=== PATIENT | female | born 1990 | race African-American/Black ===

== ENCOUNTER 2017-03-09 01:18 | Emergency (ER) | payer MEDICAID ==
[~2017-03-09] VITALS: Ht 154.9 cm; Wt 57.6 kg
[2017-03-09 01:35] VITALS: BP 101/47
[2017-03-09] MEDS ORDERED: DOXYCYCLINE MO100 MG ORAL (02:01)
[2017-03-09] MEDS ORDERED: Lidocaine 1% MPF 10mg/ml 5ml ONE (02:26)
[2017-03-09 02:30] VITALS: BP 107/55
[2017-03-09] MEDS ORDERED: Lidocaine 1% MPF 10mg/ml 5ml INJ ONE (02:30)
--- NOTE | 2017-03-14 08:42 | Emergency Room Report ---
History of Present Illness General Chief Complaint: General Complaint Source: Patient Present Illness [facility] The patient is a 26-year-old female who presented after having increased vaginal discharge. Patient stated that she had recently been exposed to sexually transmitted infection. Patient stated that she had recently had a positive test from a sexual contact. She denies any fever. She denies any abdominal pain. Patient is requesting treatment for STD. Allergies: Coded Allergies: No Known Allergies (Unverified , 03/09/17) Patient History Past Medical History: see triage record Last Menstrual Period: March 05 Now: No Reviewed Nursing Documentation: PMH: Agreed, PSxH: Agreed Nursing Documentation-PMH Past Medical History: No Stated History Review of Systems All Other Systems: negative except mentioned in HPI Physical Exam Vital Signs Date Time Temp Pulse Resp B/P Pulse Ox O2 Delivery O2 Flow Rate FiO2 03/09/17 01:26 98.1 68 16 101/47 100 Room Air General Appearance: well appearing, no apparent distress, alert, GCS 15 Head: normocephalic, atraumatic ENT: hearing grossly normal, normal pharynx, normal voice Neck: full range of motion, supple Respiratory: no respiratory distress, speaking full sentences Cardiovascular #1: normal inspection Gastrointestinal: normal inspection Musculoskeletal: normal inspection, digits/nails normal, no calf tenderness Neurologic: normal inspection, alert, oriented x3, principal secretary III-XII nml as tested, normal gait Psychiatric: normal inspection, mood/affect normal Skin: no rash Medical Decision Making Diagnostic Impression: Primary Impression: STI (sexually transmitted infection) ER Course Patient presented for possible STD exposure. Differential diagnosis included was not limited to urinary tract infection, pelvic inflammatory disease, urethritis, herpes among others. Patient's benign exam and does not appear to require any further imaging or laboratory testing at this time. The patient was given empiric treatment with antibiotics for presumed STD. Patient is advised to have outpatient STD testing. The patient is advised to follow up with primary care doctor in 1-2 days. Patient is advised to return if any worsening condition or if any changes in status that are concerning. Last Vital Signs Date Time Temp Pulse Resp B/P Pulse Ox O2 Delivery O2 Flow Rate FiO2 03/09/17 02:30 98.4 76 17 107/55 99 Room Air Status: improved Disposition: HOME, SELF-CARE Condition: Stable Scripts Doxycycline Monohydrate* (DOXYCYCLINE MONOHYDRATE*) 100 Mg Capsule 100 MG ORAL TWICE A DAY, #14 CAP 0 Refills Prov: Jesus Andrew 03/09/17 Referrals: NON PHYSICIAN (PCP) Patient Instructions: Sexually Transmitted Disease, [id number] Jesus Andrew Mar 14, 2017 08:42
== END 2017-03-09 02:30 | disposition home or self-care (01) ==
LOC: EMR 01:56
DX: A64 Unspecified sexually transmitted disease (principal)
CPT/HCPCS: 81025; 96372; 99283; J0696

== ENCOUNTER 2017-03-24 00:04 | Emergency (ER) | payer MEDICAID ==
[~2017-03-24] VITALS: Ht 154.9 cm; Wt 57.6 kg
[~2017-03-24 00:04] MED LIST: DOXYCYCLINE MO100 MG ORAL
[2017-03-24] MEDS ORDERED: NKM (00:11)
[2017-03-24] MEDS ORDERED: HYDROCODON-ACE1 EA15 ORAL (01:14)
[2017-03-24] MEDS ORDERED: BACTRIM DS TAB1 EAC1 ORAL (01:14)
[2017-03-24] MEDS ORDERED: Bactrim DS (160mg/800mg) tab ORAL ONE (01:15)
--- NOTE | 2017-03-24 01:15 | Emergency Room Report ---
History of Present Illness General Chief Complaint: Skin Rash/Abscess Source: Patient Present Illness HPI Is a 26-year-old female with no past history. She does get frequent abscesses. She presents with chief complaint of rash to her armpit. Onset for last couple days. No drainage. No fever or chills. No nausea vomiting. No other complaint pain is 5/10. Worse with palpation. Allergies: Coded Allergies: No Known Allergies (Unverified , 03/09/17) Patient History Past Medical History: see triage record, old chart reviewed Past Surgical History: other Pertinent Family History: none Social History: Denies: smoking Last Menstrual Period: March Now: No Immunizations: other Reviewed Nursing Documentation: PMH: Agreed, PSxH: Agreed Nursing Documentation-PMH Past Medical History: No Stated History Review of Systems Eye: Denies: blurred vision, eye pain ENT: Denies: ear pain, nose congestion, throat swelling Respiratory: Denies: cough, shortness of breath Cardiovascular: Denies: chest pain, palpitations Gastrointestinal: Denies: abdominal pain, diarrhea, nausea, vomiting Musculoskeletal: Denies: back pain, joint pain Skin: Denies: rash Neurological: Denies: headache, numbness Endocrine: Denies: increased thirst, increased urine Hematologic/Lymphatic: Denies: easy bruising All Other Systems: negative except mentioned in HPI Physical Exam Vital Signs Date Time Temp Pulse Resp B/P Pulse Ox O2 Delivery O2 Flow Rate FiO2 03/24/17 00:06 98.4 66 16 115/70 100 Room Air vitals normal Sp02 EP Interpretation: reviewed, normal General Appearance: well appearing, no apparent distress, alert Head: normocephalic, atraumatic Eyes: bilateral eye EOMI, bilateral eye PERRL ENT: hearing grossly normal, normal pharynx Neck: full range of motion, supple, no meningismus Respiratory: chest non-tender, lungs clear, normal breath sounds Cardiovascular #1: regular rate, rhythm, no murmur Gastrointestinal: normal bowel sounds, non tender, no mass, no organomegaly, no bruit, non-distended Musculoskeletal: back normal, gait/station normal, normal range of motion, other - Left axilla: several small nodule/fluctuant area. No redness. Neurologic: alert, oriented x3 Psychiatric: mood/affect normal Skin: warm/dry Procedures Incision and Drainage Incision and Drainage : Consent: Verbal Site: Left axilla Blade Size: 11 I & D Procedure: betadine prep Wound Location: upper extremity Anesthesia: 1% Lidocaine Volume Anesthetic (ccs): 2 Patient Tolerated: Well Complications: None Progress area clean with Betadine and chlorhexidine. Local anesthetic 1% lidocaine without epinephrine. I made a small incision over each nodule and there was small amount of pus expressed. Patient tolerated seizure without a problem. Medical Decision Making Diagnostic Impression: Primary Impression: Abscess of axilla, left ER Course Patient With superficial abscess axilla. Most likely MRSA. We'll discharge home. Last Vital Signs Date Time Temp Pulse Resp B/P Pulse Ox O2 Delivery O2 Flow Rate FiO2 03/24/17 00:06 98.4 66 16 115/70 100 Room Air Status: improved Disposition: HOME, SELF-CARE Condition: Stable Scripts Hydrocodone/Acetaminophen 5-325* (HYDROCODONE/ACETAMINOPHEN 5-325*) 1 Each Tablet 1 TAB ORAL Q6H Y for For Pain, #15 TAB 0 Refills Prov: YONG DURAN M.D. 03/24/17 Trimethoprim/Sulfamethoxazole 160/800* (BACTRIM DS TABLET*) 1 Each Tablet 1 TAB ORAL Q12H, #14 TAB 0 Refills Prov: YONG DURAN M.D. 03/24/17 Referrals: [facility],REFERRING (PCP) Patient Instructions: Abscess Additional Instructions: Followup with your DrBelkys in 2-3 days. Return if worse. YONG DURAN M.D. Mar 24, 2017 01:15
[2017-03-24 01:18] VITALS: BP_SYST 115; BP_SYST 127; BP_DIAS 70; BP_DIAS 74
== END 2017-03-24 01:19 | disposition home or self-care (01) ==
LOC: EMR 01:04
DX: L02.412 Cutaneous abscess of left axilla (principal)
CPT/HCPCS: 10060

== ENCOUNTER 2018-02-12 17:24 | Emergency (ER) | payer MEDICAID ==
[~2018-02-12] VITALS: Ht 154.9 cm; Wt 57.6 kg
[~2018-02-12 17:24] MED LIST changes: +BACTRIM DS TAB1 EAC1 ORAL; +HYDROCODON-ACE1 EA15 ORAL; +NKM
[2018-02-12 18:19] VITALS: BP 106/67
[2018-02-12] MEDS ORDERED: Lidocaine 1% MPF 10mg/ml 5ml INJ ONE (18:30)
[2018-02-12] MEDS ORDERED: Azithromycin 250mg tab ORAL ONE (18:30)
--- NOTE | 2018-02-12 18:54 | Emergency Room Report ---
History of Present Illness General Chief Complaint: General Complaint Source: Patient Present Illness HPI 27-year-old female patient persists ER requesting STI check. Patient reports she is asymptomatic. Denies dysuria, hematuria, vaginal discharge. Reports that her boyfriend is in the ER currently as well being checked for STI due to him having symptoms. Patient requesting to be evaluated as well. Denies fever , chest pain, shortness breath, abdominal pain, flank pain, vomiting. reports LMP normal, denies . denies other sexual partners. denies vaginal rash. Allergies: Coded Allergies: No Known Allergies (Unverified , 03/09/17) Patient History Past Medical History: see triage record Last Menstrual Period: 01/29/18 Reviewed Nursing Documentation: PMH: Agreed; PSxH: Agreed Nursing Documentation-PMH Past Medical History: No Stated History Review of Systems All Other Systems: negative except mentioned in HPI Physical Exam Vital Signs Date Time Temp Pulse Resp B/P (MAP) Pulse Ox O2 Delivery O2 Flow Rate FiO2 02/12/18 17:29 97.8 70 18 106/67 98 Room Air 97.9 Sp02 EP Interpretation: reviewed, normal General Appearance: well appearing, no apparent distress, alert, GCS 15, non- toxic Head: normocephalic, atraumatic Neck: full range of motion Respiratory: lungs clear, normal breath sounds, no rhonchi, no respiratory distress, no accessory muscle use, no wheezing, speaking full sentences Cardiovascular #1: regular rate, rhythm, no edema Gastrointestinal: non tender, soft, no mass, non-distended, no guarding, no rebound Genitourinary: no CVA tenderness Musculoskeletal: back normal, digits/nails normal, gait/station normal, normal range of motion, non-tender Neurologic: alert, oriented x3, responsive, motor strength/tone normal, sensory intact Psychiatric: mood/affect normal Medical Decision Making PA Attestation Dr. Hercules is my supervising Physician whom patient management has been discussed with. Diagnostic Impression: Primary Impression: Encounter for assessment of sexually transmitted disease exposure ER Course Pt. presents to the ED c/o STI. Ddx considered but are not limited to gonorrhea, chlamydia, cystitis, pyelonephritis. Vital signs: are WNL, pt. is afebrile ER COURSE: Ordered Azithromycin and Rocephin to cover for gonorrhea and chlamydia due to possible exposure and patient boyfriend symptomatic.. Informed patient she needs to follow with STI clinic for further testing and treatment. Needs to be evaluated for other diseases including HIV and syphilis to name a few. Patient reports she has appointment with the physician tomorrow, will be tested at that time. UA shows no nitrites, 0-2 WBCs, moderate epithelial cells, patient asymptomatic , low suspicion for UTI. Does not require antibiotic treatment at this time. urine negative. Informed patient of results. avoid sexual activity for 2 weeks. Wear condoms during sex. Drink plenty of fluids. Instructed all sexual contacts to be tested and treated as needed. DISCHARGE: Advised to use safe sex practices including but not limited to use of condoms. Instructed patient to follow up with STI clinic and/or PCP for future STI treatment and prevention. Instructed patient to inform partner of need for treatment to prevent future infection. Patient is resting comfortably, in no acute distress, nontoxic appearing, talking without difficulty. Patient to take medications as instructed Will provide with patient care instructions and any necessary prescriptions. Care plan and follow-up instructions provided. Patient instructed to follow-up with primary care provider in 3 - 5 days. Patient questions asked and answered. Patient reports understanding and agreement to treatment plan. ER precautions given. Patient instructed to return to ER immediately for any new or worsening of symptoms including but not limited to increasing SOB, persistent fever. - Please note that this Emergency Department Report was dictated using [employer] learning technology software, occasionally this can lead to erroneous entry secondary to interpretation by the dictation equipment. Labs Test 02/12/18 18:54 Urine Color Yellow Urine Appearance Slightly cloudy Urine pH 6.5 (4.5-8.0) Urine Specific [place] 1.015 (1.005-1.035) Urine Protein Negative (NEGATIVE) Urine Glucose (UA) Negative (NEGATIVE) Urine Ketones Negative (NEGATIVE) Urine Occult Blood Negative (NEGATIVE) Urine Nitrite Negative (NEGATIVE) Urine Bilirubin Negative (NEGATIVE) Urine Urobilinogen 1 MG/DL (0.0-1.0) Urine Leukocyte Esterase 1+ (NEGATIVE) Urine RBC 0-2 /HPF (0 - 2) Urine WBC 0-2 /HPF (0 - 2) Urine Squamous Epithelial Cells Moderate /LPF (NONE/OCC) Urine Bacteria Moderate /HPF (NONE) Urine HCG, Qualitative Negative (NEGATIVE) Last Vital Signs Date Time Temp Pulse Resp B/P (MAP) Pulse Ox O2 Delivery O2 Flow Rate FiO2 02/12/18 17:29 97.8 70 18 106/67 98 Room Air 97.9 Disposition: HOME, SELF-CARE Condition: Stable Referrals: NON PHYSICIAN (PCP) Patient Instructions: Sexually Transmitted Disease, [id number] Additional Instructions: Followup with primary care provider further treatment and referral. Follow-up with STI clinic for further testing and treatment. Wear condoms during sex. Drink plenty of fluids. Avoid sexual activity for the next 2 weeks. Inform all partner should be tested and treated. Patient questions asked and answered. ER precautions given, patient instructed to return to ER immediately for any new or worsening of symptoms. Sahil Pinedo Feb 12, 2018 18:54
[2018-02-12 19:38] LABS: APPEARANCE,URINE SLIGHTLY CLOUDY; BILIRUBIN, URINE NEGATIVE (NEGATIVE); GLUCOSE, URINE (UA) NEGATIVE (NEGATIVE); KETONES,URINE NEGATIVE (NEGATIVE); LEUKOCYTE ESTERASE ,URINE 1+ (NEGATIVE); NITRITE,URINE NEGATIVE (NEGATIVE); PH,URINE 6.5 (4.5-8.0); PROTEIN,URINE NEGATIVE (NEGATIVE); UROBILINOGEN,URINE 1 MG/DL (0.0-1.0)
[2018-02-12 19:39] LABS: COLOR,URINE YELLOW
[2018-02-12 19:57] VITALS: BP 106/67
== END 2018-02-12 19:59 | disposition home or self-care (01) ==
LOC: EMR 18:45
DX: Z20.2 Contact with and (suspected) exposure to infections with a predominantly sexual mode of transmission (principal)
CPT/HCPCS: 81003; 81025; 87086; 96372; 96374; 99284; J0696; Q0144

== ENCOUNTER 2018-04-27 20:30 | Emergency (ER) | payer MEDICAID ==
[~2018-04-27] VITALS: Ht 154.9 cm; Wt 57.6 kg
[2018-04-27 21:01] VITALS: BP 117/67
--- NOTE | 2018-04-28 01:30 | Emergency Room Report ---
History of Present Illness General Chief Complaint: General Complaint Source: Patient Present Illness HPI Patient presents with request of checking her urine Denies any fevers Denies any abdominal pain Patient reports that she is late on her menstrual cycle Denies any dysuria frequency Denies any back or flank pain Denies any vaginal bleeding or spotting Allergies: Coded Allergies: No Known Allergies (Unverified , 03/09/17) Patient History Past Medical History: see triage record Pertinent Family History: none Last Menstrual Period: last month Reviewed Nursing Documentation: PMH: Agreed; PSxH: Agreed Nursing Documentation-PMH Past Medical History: No Stated History Review of Systems All Other Systems: negative except mentioned in HPI Physical Exam Vital Signs Date Time Temp Pulse Resp B/P (MAP) Pulse Ox O2 Delivery O2 Flow Rate FiO2 04/27/18 20:58 99.7 78 16 117/67 99 Room Air 99.7 Sp02 EP Interpretation: reviewed, normal General Appearance: well appearing Head: normocephalic, atraumatic Eyes: bilateral eye PERRL, bilateral eye EOMI ENT: normal pharynx Musculoskeletal: normal inspection Neurologic: alert, oriented x3 Medical Decision Making Diagnostic Impression: Primary Impression: Abnormal menstrual cycle ER Course Patient's test was negative at this time patient left the department prior to having a repeat evaluation Stable for close follow-up Labs Test 04/27/18 21:16 Urine HCG, Qualitative Negative (NEGATIVE) Last Vital Signs Date Time Temp Pulse Resp B/P (MAP) Pulse Ox O2 Delivery O2 Flow Rate FiO2 04/27/18 21:44 99.7 78 16 117/67 99 Room Air 99.7 Status: improved Disposition: HOME, SELF-CARE Condition: Improved Referrals: [facility],REFERR[facility] (PCP) Additional Instructions: Patient is provided with the discharge instructions notified to follow up with primary doctor in the next 2-3 days otherwise return to the er with any worsening symptoms. Please note that this report is being documented using [employer] technology. This can lead to erroneous entry secondary to incorrect interpretation by the dictating instrument. Mahogany Hercules DO Apr 28, 2018 01:30
== END 2018-04-27 21:50 | disposition home or self-care (01) ==
LOC: EMR 21:48
DX: N92.6 Irregular menstruation, unspecified (principal)
CPT/HCPCS: 81025; 99283

== ENCOUNTER 2019-02-04 19:50 | Emergency (ER) | payer MEDICAID ==
[~2019-02-04] VITALS: Ht 154.9 cm; Wt 57.6 kg
[2019-02-04 20:22] VITALS: BP 109/55
[2019-02-04] MEDS ORDERED: oxyCODONE HCL/Acetaminophen 5/325mg ORAL ONE (20:45)
--- NOTE | 2019-02-04 21:14 | Emergency Room Report ---
History of Present Illness General Chief Complaint: Skin Rash/Abscess Source: Patient Present Illness HPI 28-year-old healthy female comes here with complaints of few month history of anal swelling and mild pain, finally came and it started hurting slightly more over the past few days, she feels a little lump there and is not going away so she came in for evaluation, denies any bleeding, fevers, any other complaints. She reports she has had an abscess in her underarm in the remote past that had to be drained so she thought this would be similar. Allergies: Coded Allergies: No Known Allergies (Unverified , 03/09/17) Patient History Past Medical History: see triage record Last Menstrual Period: now Now: No Reviewed Nursing Documentation: PMH: Agreed; PSxH: Agreed Nursing Documentation-PMH Past Medical History: No Stated History Review of Systems All Other Systems: negative except mentioned in HPI Physical Exam Vital Signs Date Time Temp Pulse Resp B/P (MAP) Pulse Ox O2 Delivery O2 Flow Rate FiO2 02/04/19 20:17 98.1 87 18 107/55 (72) 98 Room Air Sp02 EP Interpretation: reviewed, normal General Appearance: no apparent distress, alert, non-toxic Head: normocephalic Eyes: bilateral eye normal inspection, bilateral eye PERRL, bilateral eye EOMI ENT: normal ENT inspection, hearing grossly normal, normal pharynx, no angioedema, normal voice, moist mucus membranes Neck: normal inspection, full range of motion, supple, supple/symm/no masses Respiratory: chest non-tender, lungs clear, normal breath sounds, chest symmetrical, palpation of chest normal Cardiovascular #1: normal peripheral pulses, regular rate, rhythm Cardiovascular #2: 2+ radial (R), 2+ radial (L) Gastrointestinal: normal inspection, non tender, soft, no mass, no guarding, no rebound Rectal: normal rectal tone, mass - 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, 2cm polyp palpated at 2o'clock position, minimally tender, nonerythematous, nonfluctuant Genitourinary: normal inspection, no CVA tenderness Musculoskeletal: back normal, gait/station normal, normal range of motion, non- tender, no calf tenderness Neurologic: alert, responsive, hay stacker III-XII nml as tested, motor strength/tone normal, sensory intact, speech normal Psychiatric: judgement/insight normal, memory normal, mood/affect normal Skin: normal color, no rash, warm/dry, normal turgor Lymphatic: no adenopathy Procedures Incision and Drainage Incision and Drainage : Consent: Verbal Site: R anal polypoid lesion Blade Size: 11 I & D Procedure: betadine prep, sterile drapes applied Wound's Depth, Shape: superficial Anesthesia: 1% Lidocaine Volume Anesthetic (ccs): 1 Patient Tolerated: Well Complications: None Progress Very shallow stab incision placed into polyp, no blood nor clot nor purulent material expressed, patient tolerated well Medical Decision Making Diagnostic Impression: Primary Impression: Anal polyp ER Course Examination, attempted incision, suspect uncomplicated anal polyp, recommend patient to be followed up by a rectal surgeon. Last Vital Signs Date Time Temp Pulse Resp B/P (MAP) Pulse Ox O2 Delivery O2 Flow Rate FiO2 02/04/19 20:17 98.1 87 18 107/55 (72) 98 Room Air Disposition: HOME, SELF-CARE Condition: Stable RANDA MCNAMARA M.D Feb 04, 2019 21:14
[2019-02-04 21:30] VITALS: BP 109/55
== END 2019-02-04 21:30 | disposition home or self-care (01) ==
LOC: EMR 20:54
DX: K62.0 Anal polyp (principal)
CPT/HCPCS: 46922; 99283; Z7502

== ENCOUNTER 2019-04-23 21:23 | Emergency (ER) | payer MEDICAID ==
[~2019-04-23] VITALS: Ht 154.9 cm; Wt 57.6 kg
[2019-04-23 21:40] VITALS: BP 113/66
--- NOTE | 2019-04-23 21:40 | NUR ---
ER Nurse Note: Pt walked in c/o frequent, burning when urinating since 04/19. Pt staed vaginal discharge- slight blood. Pt stated she had past UTI.
[2019-04-23 21:55] LABS: APPEARANCE,URINE CLOUDY; BILIRUBIN, URINE NEGATIVE (NEGATIVE); COLOR,URINE PALE YELLOW; GLUCOSE, URINE (UA) NEGATIVE (NEGATIVE); KETONES,URINE NEGATIVE (NEGATIVE); LEUKOCYTE ESTERASE ,URINE 3+ (NEGATIVE); NITRITE,URINE NEGATIVE (NEGATIVE); PH,URINE 7 (4.5-8.0); PROTEIN,URINE 2+ (NEGATIVE); UROBILINOGEN,URINE NORMAL MG/DL (0.0-1.0)
[2019-04-23] MEDS ORDERED: CEPHALEXIN500 M1 ORAL (22:15)
--- NOTE | 2019-04-23 22:16 | Emergency Room Report ---
History of Present Illness General Chief Complaint: Female Urogenital Problems Source: Patient Present Illness HPI 28-year-old female presents with dysuria x4 days, increased frequency no fevers no chills, suprapubic pain sharp in nature moderate severity no aggravating or alleviating factors, no nausea no vomiting no chest pain no shortness of breath patient presents for evaluation Allergies: Coded Allergies: No Known Allergies (Unverified , 03/09/17) Patient History Past Medical History: see triage record Last Menstrual Period: 04/2019 Now: No Reviewed Nursing Documentation: PMH: Agreed; PSxH: Agreed Review of Systems All Other Systems: negative except mentioned in HPI Physical Exam Vital Signs Date Time Temp Pulse Resp B/P (MAP) Pulse Ox O2 Delivery O2 Flow Rate FiO2 04/23/19 21:24 98.2 89 16 113/66 (82) 97 Room Air Sp02 EP Interpretation: reviewed, normal General Appearance: well appearing, no apparent distress, alert Head: normocephalic, atraumatic Eyes: bilateral eye PERRL, bilateral eye EOMI ENT: uvula midline, moist mucus membranes Neck: supple, thyroid normal, supple/symm/no masses Respiratory: lungs clear, no respiratory distress, no retraction, no accessory muscle use Cardiovascular #1: normal peripheral pulses, regular rate, rhythm, no edema, no gallop, no murmur Gastrointestinal: soft, no guarding, no rebound, tenderness - MILD superpubic tenderness Genitourinary: no CVA tenderness Musculoskeletal: normal inspection Neurologic: alert, oriented x3 Psychiatric: mood/affect normal Skin: no rash, warm/dry Medical Decision Making Diagnostic Impression: Primary Impression: UTI (urinary tract infection) Qualified Codes: N30.00 - Acute cystitis without hematuria ER Course Patient with UTI will provide antibiotics, disposition home Laboratory Tests Test 04/23/19 21:30 Urine Color Pale yellow Urine Appearance Cloudy Urine pH 7 (4.5-8.0) Urine Specific [place] 1.005 (1.005-1.035) Urine Protein 2+ (NEGATIVE) H Urine Glucose (UA) Negative (NEGATIVE) Urine Ketones Negative (NEGATIVE) Urine Blood 3+ (NEGATIVE) H Urine Nitrite Negative (NEGATIVE) Urine Bilirubin Negative (NEGATIVE) Urine Urobilinogen Normal MG/DL (0.0-1.0) Urine Leukocyte Esterase 3+ (NEGATIVE) H Urine RBC 5-10 /HPF (0 - 2) H Urine WBC Tntc /HPF (0 - 2) H Urine Squamous Epithelial Cells Moderate /LPF (NONE/OCC) H Urine Bacteria Moderate /HPF (NONE) H Urine HCG, Qualitative Negative (NEGATIVE) Last Vital Signs Date Time Temp Pulse Resp B/P (MAP) Pulse Ox O2 Delivery O2 Flow Rate FiO2 04/23/19 21:24 98.2 89 16 113/66 (82) 97 Room Air Disposition: HOME, SELF-CARE Condition: Stable Scripts Cephalexin* (CEPHALEXIN*) 500 Mg Tablet 500 MG ORAL EVERY 6 HOURS for 5 Days, #20 CAP Prov: Rob Menchaca MD 04/23/19 Referrals: [facility] Diogo Bernabe [facility] Patient Instructions: Urinary Tract Infection Additional Instructions: The patient was provided with discharge instructions, notified to follow-up with a primary care doctor and or specialist in the next 24-48 hours, and to return to the ED if they have worsening of their symptoms. Please note that this report is being documented using [employer] technology. This can lead to erroneous entry secondary to incorrect interpretation by the dictating instrument. Rob Menchaca MD Apr 23, 2019 22:15
[2019-04-23 22:30] VITALS: BP 113/66
--- NOTE | 2019-04-23 22:30 | NUR ---
ER Nurse Note: Pt seen, treated, medically cleared for discharge by ERMD. Discharge instuctions and presciptions given with repeat verbalization by pt. Emphasized to follow up with primay care provider. All orders completed per ERMD orders. Pt a&ox4, VSS, no signs of distress. ID band removed. All questions answered. Pt left with all belongings, left with own transportation.
== END 2019-04-23 22:30 | disposition home or self-care (01) ==
LOC: EMR 22:00
DX: N30.00 Acute cystitis without hematuria (principal)
CPT/HCPCS: 81003; 81025; 87086; 99283

== ENCOUNTER 2019-05-03 23:08 | Emergency (ER) | payer MEDICAID ==
[~2019-05-03] VITALS: Ht 154.9 cm; Wt 57.6 kg
[~2019-05-03 23:08] MED LIST changes: +CEPHALEXIN500 M1 ORAL
[2019-05-03 23:38] VITALS: BP 106/61
[2019-05-03 23:41] LABS: BILIRUBIN, URINE NEGATIVE (NEGATIVE); GLUCOSE, URINE (UA) NEGATIVE (NEGATIVE); KETONES,URINE 1+ (NEGATIVE); LEUKOCYTE ESTERASE ,URINE 2+ (NEGATIVE); NITRITE,URINE NEGATIVE (NEGATIVE); PH,URINE 6 (4.5-8.0); PROTEIN,URINE 2+ (NEGATIVE); UROBILINOGEN,URINE 8 MG/DL (0.0-1.0)
--- NOTE | 2019-05-03 23:49 | Emergency Room Report ---
History of Present Illness General Chief Complaint: Female Urogenital Problems Source: Patient Present Illness [facility] This a 28-year-old female with no past medical history. She presents with chief complaint of vaginal pain. She was here a few days ago and diagnosed with UTI patient was given antibiotics. She said now she has a discharge and vaginal area is very swollen. No fever chills. Worse with urination. Denies any other complaint. Urine culture showed mixed organism. Allergies: Coded Allergies: No Known Allergies (Unverified , 03/09/17) Patient History Past Medical History: see triage record, old chart reviewed Past Surgical History: none Pertinent Family History: none Social History: Denies: smoking Last Menstrual Period: 04/29/19 Now: No Immunizations: other Reviewed Nursing Documentation: PMH: Agreed; PSxH: Agreed Nursing Documentation-PMH Past Medical History: No Stated History Review of Systems Eye: Denies: eye pain, blurred vision ENT: Denies: ear pain, nose congestion, throat swelling Respiratory: Denies: cough, shortness of breath Cardiovascular: Denies: chest pain, palpitations Gastrointestinal: Denies: abdominal pain, diarrhea, nausea, vomiting Genitourinary: Reports: discharge, pain, vag bleed/dc Musculoskeletal: Denies: back pain, joint pain Skin: Denies: rash Neurological: Denies: headache, numbness Endocrine: Denies: increased thirst, increased urine Hematologic/Lymphatic: Denies: easy bruising All Other Systems: negative except mentioned in HPI Physical Exam Vital Signs Date Time Temp Pulse Resp B/P (MAP) Pulse Ox O2 Delivery O2 Flow Rate FiO2 05/03/19 23:10 97.9 80 16 106/61 (76) 100 Room Air Vitals normal Sp02 EP Interpretation: reviewed, normal General Appearance: well appearing, no apparent distress, alert Head: normocephalic, atraumatic Eyes: bilateral eye PERRL, bilateral eye EOMI ENT: hearing grossly normal, normal pharynx Neck: full range of motion, supple, no meningismus Respiratory: chest non-tender, lungs clear, normal breath sounds Cardiovascular #1: regular rate, rhythm, no murmur Gastrointestinal: normal bowel sounds, non tender, no mass, no organomegaly, no bruit, non-distended Genitourinary: other - Exam done with female nurse choke setter. External exam show edema to labia majora b/l. Internal exam showed whitish thick discharge. There is irritation to the right vaginal wall. Musculoskeletal: back normal, gait/station normal, normal range of motion Psychiatric: mood/affect normal Medical Decision Making Diagnostic Impression: Primary Impression: Candidiasis of vulva and vagina ER Course Patient presents with candidiasis of the vulvovaginitis. No evidence ectopic. Unlikely to be bacterial UTI infection. Will discharge home. Last Vital Signs Date Time Temp Pulse Resp B/P (MAP) Pulse Ox O2 Delivery O2 Flow Rate FiO2 05/03/19 23:38 97.9 67 16 106/61 100 Room Air Status: improved Disposition: HOME, SELF-CARE Condition: Stable Scripts Miconazole Nitrate (MONISTAT 7) 45 Gm Cream.appl 45 GM VG DAILY, #7 UNITS Prov: Evens Glass MD 05/04/19 Fluconazole* (DIFLUCAN*) 100 Mg Tablet 100 MG ORAL DAILY, #7 TAB Prov: Evens Glass MD 05/04/19 Patient Instructions: Vaginal Yeast Infection, Adult Additional Instructions: Follow-up with in 7 days. Return if worse. Evens Glass MD May 03, 2019 23:49
[2019-05-03 23:55] LABS: APPEARANCE,URINE SLIGHTLY CLOUDY; COLOR,URINE YELLOW
[2019-05-04] MEDS ORDERED: Fluconazole 150mg tab ORAL ONE
[2019-05-04] MEDS ORDERED: DIFLUCAN100 MG ORAL (00:13)
[2019-05-04] MEDS ORDERED: MONISTAT 745 GM VG (00:13)
[2019-05-04 00:15] VITALS: BP 106/61
== END 2019-05-04 00:15 | disposition home or self-care (01) ==
LOC: EMR 23:45
DX: B37.3 Candidiasis of vulva and vagina (principal)
CPT/HCPCS: 81003; 87086; 87210; 99283

== ENCOUNTER → 2019-06-20 | Emergency (ER) | payer MEDICAID ==
[~2019-06-20] VITALS: Ht 154.9 cm; Wt 57.6 kg
[~2019-06-20] MED LIST changes: +CEPHALEXIN500 MG ORAL; +Cephalexin 500mg cap ORAL ONE; +DIFLUCAN100 MG ORAL; +MONISTAT 745 GM VG; +PHENAZOPYRIDIN200 MG ORAL
[2019-06-20 04:24] VITALS: BP 90/52
--- NOTE | 2019-06-20 04:47 | Emergency Room Report ---
History of Present Illness General Chief Complaint: Female Urogenital Problems Source: Patient Present Illness [facility] This is a 28-year-old female with no past medical history. She presents with chief complaint of possible urinary tract infection. She has dysuria, frequency and urgency for the last couple days. No blood. No back pain. No nausea no vomiting. No discharge. No bleeding. Nothing made it better. Urinating made it worse. Allergies: Coded Allergies: No Known Allergies (Unverified , 03/09/17) Patient History Past Medical History: see triage record, old chart reviewed Past Surgical History: none Pertinent Family History: none Social History: Denies: smoking Last Menstrual Period: 05/2019 Now: No Immunizations: other Reviewed Nursing Documentation: PMH: Agreed; PSxH: Agreed Review of Systems Eye: Denies: eye pain, blurred vision ENT: Denies: ear pain, nose congestion, throat swelling Respiratory: Denies: cough, shortness of breath Cardiovascular: Denies: chest pain, palpitations Gastrointestinal: Denies: abdominal pain, diarrhea, nausea, vomiting Genitourinary: Reports: dysuria, frequency, pain, urgency Musculoskeletal: Denies: back pain, joint pain Skin: Denies: rash Neurological: Denies: headache, numbness Endocrine: Denies: increased thirst, increased urine Hematologic/Lymphatic: Denies: easy bruising All Other Systems: negative except mentioned in HPI Physical Exam Vital Signs Date Time Temp Pulse Resp B/P (MAP) Pulse Ox O2 Delivery O2 Flow Rate FiO2 06/20/19 04:24 98.4 68 16 90/52 (65) 98 Room Air Vitals unremarkable Sp02 EP Interpretation: reviewed, normal General Appearance: well appearing, no apparent distress, alert Head: normocephalic, atraumatic Eyes: bilateral eye PERRL, bilateral eye EOMI ENT: hearing grossly normal, normal pharynx Neck: full range of motion, supple, no meningismus Respiratory: chest non-tender, lungs clear, normal breath sounds Cardiovascular #1: regular rate, rhythm, no murmur Gastrointestinal: normal bowel sounds, non tender, no mass, no organomegaly, no bruit, non-distended Musculoskeletal: back normal, gait/station normal, normal range of motion Psychiatric: mood/affect normal Medical Decision Making Diagnostic Impression: Primary Impression: Urinary tract infection Qualified Codes: N30.00 - Acute cystitis without hematuria ER Course She presents with symptoms consistent with UTI. No evidence of pyelonephritis or sepsis. Will discharge home. Last Vital Signs Date Time Temp Pulse Resp B/P (MAP) Pulse Ox O2 Delivery O2 Flow Rate FiO2 06/20/19 04:24 98.4 68 16 90/52 (65) 98 Room Air Status: improved Disposition: HOME, SELF-CARE Condition: Stable Scripts Phenazopyridine Hcl* (PYRIDIUM*) 200 Mg Tablet 200 MG ORAL THREE TIMES A DAY, #6 TAB 0 Refills Prov: Evens Glass MD 06/20/19 Cephalexin* (KEFLEX*) 500 Mg Capsule 500 MG ORAL TID, #21 CAP Prov: Evens Glass MD 06/20/19 Referrals: [facility]ERR[facility] (PCP) Patient Instructions: Urinary Tract Infection Additional Instructions: Increase fluids. Follow-up with your doctor in 7 days. Return if worse. Evens Glass MD Jun 20, 2019 04:47
== END | disposition home or self-care (01) ==
LOC: EMR 04:38
DX: N30.00 Acute cystitis without hematuria (principal)
CPT/HCPCS: 87086; 87181; Z7502; 99283

== ENCOUNTER 2020-03-09 00:18 | Emergency (ER) | payer MEDICAID ==
[~2020-03-09] VITALS: Ht 154.9 cm; Wt 57.6 kg
[~2020-03-09 00:18] MED LIST changes: -Cephalexin 500mg cap ORAL ONE
[2020-03-09 00:38] VITALS: BP 120/73
--- NOTE | 2020-03-09 00:53 | Emergency Room Report ---
History of Present Illness General Chief Complaint: Female Urogenital Problems Source: Patient Present Illness HPI Patient presents with 3 days of vaginal pain. This is mainly external. She had something like this many years ago and was given a prescription for lidocaine jelly. She denies knowing that she has herpes. She has had urinary tract infections in the past and this does not feel like that. She is applied A &D ointment. When she is at rest there is no pain but otherwise when she moves the pain is 10/10. She denies lymphadenopathy or abdominal pain, fevers or chills or change in bowels. She claims to have several sexual partners. Use of condoms is intermittent. She does not believe that she has a sexually transmitted disease. She has been treated for an STD in the past. This began after vigorous sexual intercourse. No sore throat, chest pain, palpitations, nausea, vomiting, diarrhea, abdominal pain, shortness of breath, joint pain, rashes, depression, anxiety, visual changes, dizziness, headache. Allergies: Coded Allergies: No Known Allergies (Unverified , 03/09/17) COVID-19 Screening Contact w/high risk pt: No Experienced COVID-19 symptoms?: No COVID-19 Testing performed GEL COATER: No Patient History Past Medical History: see triage record Social History: Reports: smoking Social History Narrative Currently not working Last Menstrual Period: CURRENTLY ON PERIOD Now: No : 4 Para: 1 Reviewed Nursing Documentation: PMH: Agreed; PSxH: Agreed Nursing Documentation-PMH Past Medical History: No Stated History Review of Systems All Other Systems: negative except mentioned in HPI Physical Exam Vital Signs Date Time Temp Pulse Resp B/P (MAP) Pulse Ox O2 Delivery O2 Flow Rate FiO2 03/09/20 00:28 98.1 86 18 120/73 (89) 99 Room Air Sp02 EP Interpretation: reviewed, normal General Appearance: well appearing, no apparent distress, GCS 15 Head: normocephalic Eyes: bilateral eye normal inspection, bilateral eye PERRL, bilateral eye EOMI ENT: moist mucus membranes Neck: supple Respiratory: normal inspection Cardiovascular #1: regular rate, rhythm Cardiovascular #2: 2+ radial (R) Gastrointestinal: normal inspection, normal bowel sounds, non tender, no mass, non-distended Genitourinary: adnexa normal, cervix normal, os closed, urethra normal, uterus normal, other - Right posterior labial inflammation and erythema. No vesicular rash. Musculoskeletal: back normal, normal range of motion, gait/station normal Neurologic: alert, oriented x3, grossly normal Psychiatric: mood/affect normal Skin: no rash, warm/dry Medical Decision Making Diagnostic Impression: Primary Impression: Vaginitis Qualified Codes: N76.0 - Acute vaginitis Additional Impressions: Labial abrasion Qualified Codes: S30.814A - Abrasion of vagina and vulva, initial encounter UTI (urinary tract infection) Qualified Codes: N39.0 - Urinary tract infection, site not specified ER Course Patient presents with vaginal pain for 3days. Differential includes urinary tract infection, herpes, vaginal abrasion, genital infection, chlamydia, gonorrhea, PID amongst others. Based on exam PID is excluded. Urinalysis urine GC and chlamydia sent. Wet mount and viral culture also ordered. Patient given Tylenol and lidocaine jelly applied. Based on physical exam no evidence of herpes genitalis. Labs significant for pyuria without hematuria. Wet mount with clue cells. Discussed results with patient. Bactrim begun. Pain is improved with treatment. Offered patient coverage for STD. Patient declines as she feels risk of STD low at this time. Patient will see her physician tomorrow. In addition she wants to wait for results. Patient stable for outpatient observation and treatment. Laboratory Tests Test 03/09/20 00:37 Urine Color Pale yellow Urine Appearance Slightly cloudy Urine pH 6.5 (4.5-8.0) Urine Specific [place] 1.010 (1.005-1.035) Urine Protein Negative (NEGATIVE) Urine Glucose (UA) Negative (NEGATIVE) Urine Ketones Negative (NEGATIVE) Urine Blood 1+ (NEGATIVE) H Urine Nitrite Negative (NEGATIVE) Urine Bilirubin Negative (NEGATIVE) Urine Urobilinogen Normal MG/DL (0.0-1.0) Urine Leukocyte Esterase 3+ (NEGATIVE) H Urine RBC 0-2 /HPF (0 - 2) Urine WBC Tntc /HPF (0 - 2) H Urine Squamous Epithelial Cells Moderate /LPF (NONE/OCC) H Urine Bacteria Few /HPF (NONE) Urine HCG, Qualitative Negative (NEGATIVE) Chlamydia trachomatis RNA Pending Neisseria gonorrhoeae RNA Pending Microbiology Date/Time Source Procedure Growth Status 03/09/20 00:50 Vaginal Wet Prep - Final Complete Last Vital Signs Date Time Temp Pulse Resp B/P (MAP) Pulse Ox O2 Delivery O2 Flow Rate FiO2 03/09/20 02:00 98.1 84 16 122/65 99 Room Air Status: improved Disposition: HOME, SELF-CARE Condition: Improved Scripts Bacitracin (Bacitracin) 28.4 Gm Oint...g. 1 APPLIC TOPIC BID, #20 GM Prov: Carlos Milligan MD 03/09/20 Metronidazole* (METROGEL-VAGINAL*) 70 Gm Gel.w.appl 1 APPL VAGIN BEDTIME, #45 GM Prov: Carlos Milligan MD 03/09/20 Trimethoprim/Sulfamethoxazole 160/800* (BACTRIM DS TABLET*) 1 Each Tablet 1 TAB ORAL Q12H, #14 TAB 0 Refills Prov: Carlos Milligan MD 03/09/20 Referrals: NON PHYSICIAN (PCP) Carlos Milligan MD Mar 09, 2020 00:53
[2020-03-09] MEDS ORDERED: Lidocaine HCl 2% Jelly 6ml Tube TOPIC ONE (01:00)
[2020-03-09] MEDS ORDERED: Acetaminophen 500mg (ES) tab ORAL ONE (01:00)
[2020-03-09 01:09] LABS: BILIRUBIN, URINE NEGATIVE (NEGATIVE); COLOR,URINE PALE YELLOW; GLUCOSE, URINE (UA) NEGATIVE (NEGATIVE); KETONES,URINE NEGATIVE (NEGATIVE); LEUKOCYTE ESTERASE ,URINE 3+ (NEGATIVE); NITRITE,URINE NEGATIVE (NEGATIVE); PH,URINE 6.5 (4.5-8.0); PROTEIN,URINE NEGATIVE (NEGATIVE); UROBILINOGEN,URINE NORMAL MG/DL (0.0-1.0)
[2020-03-09] MEDS ORDERED: Bactrim-DS 1 tab ORAL ONE (01:15)
[2020-03-09 01:21] LABS: APPEARANCE,URINE SLIGHTLY CLOUDY
[2020-03-09] MEDS ORDERED: BACITRACIN15 GM TOPIC (01:52)
[2020-03-09] MEDS ORDERED: BACTRIM DS TAB1 EAC1 ORAL (01:52)
[2020-03-09] MEDS ORDERED: METROGEL-VAGINA70 G1 VAGIN (01:52)
[2020-03-09 02:00] VITALS: BP 122/65
== END 2020-03-09 02:00 | disposition home or self-care (01) ==
LOC: EMR 00:43
DX: S30.814A Abrasion of vagina and vulva, initial encounter (principal); N39.0 Urinary tract infection, site not specified; N76.0 Acute vaginitis; F17.200 Nicotine dependence, unspecified, uncomplicated; X58.XXXA Exposure to other specified factors, initial encounter; Y93.9 Activity, unspecified; Y92.9 Unspecified place or not applicable
CPT/HCPCS: 81003; 81025; 87086; 87210; 87491; 87590; Z7502; 99283

== ENCOUNTER → 2020-04-06 | Emergency (ER) | payer MEDICAID ==
[~2020-04-06] VITALS: Ht 154.9 cm; Wt 62.1 kg
[~2020-04-06] MED LIST changes: +AMERICAINE28 G1 TP; +ANUSOL-HC25 MG RECTAL; +ANUSOL-HC30 GM RC; +BACITRACIN15 GM TOPIC; +LACTULOSE20 GM/301 ORAL; +Lidocaine HCl 2% Jelly 6ml Tube TOPIC ONE; +METROGEL-VAGINA70 G1 VAGIN; +TYLENOL325 MG ORAL
[2020-04-06 18:22] VITALS: BP 127/84
[2020-04-06 18:35] VITALS: BP 127/84
--- NOTE | 2020-04-06 18:44 | Emergency Room Report ---
History of Present Illness General Chief Complaint: Skin Rash/Abscess Source: Patient Present Illness HPI Patient presents with a painful cyst by her rectum 2 days. She believes it is a recurrence of an ingrown hair. Is painful. She denies any bleeding. There are no fevers or chills. The pain is reported 5/10. It is stinging and aching and worse when she sits down. She denies any dysuria. She states that she strains quite a bit moving her bowels. She also spends quite a bit of time on the toilet. She does not believe she is at this time. She claims to have several sexual partners. Use of condoms is intermittent. She does not believe that she has a sexually transmitted disease. She has been treated for an STD in the past. She reports that she was seen here before for an ingrown hair. She says this was aspirated with a needle and nothing was obtained. It resolved on its own. Allergies: Coded Allergies: No Known Allergies (Unverified , 03/09/17) COVID-19 Screening Contact w/high risk pt: No Experienced COVID-19 symptoms?: No COVID-19 Testing performed THIRD COOK: No Patient History Past Medical History: see triage record Social History: Reports: smoking Social History Narrative Currently not working Last Menstrual Period: 04/01/2020 Reviewed Nursing Documentation: PMH: Agreed; PSxH: Agreed Nursing Documentation-PMH Past Medical History: No Stated History Review of Systems All Other Systems: negative except mentioned in HPI Physical Exam Vital Signs Date Time Temp Pulse Resp B/P (MAP) Pulse Ox O2 Delivery O2 Flow Rate FiO2 04/06/20 18:22 98.2 111 19 127/84 (98) 100 Room Air Sp02 EP Interpretation: reviewed, normal General Appearance: well appearing, no apparent distress, GCS 15 Head: normocephalic Eyes: bilateral eye normal inspection, bilateral eye PERRL ENT: moist mucus membranes Neck: full range of motion Respiratory: normal inspection Cardiovascular #1: regular rate, rhythm Gastrointestinal: normal inspection, non tender Rectal: other - Thrombosed 1 cm left anal area 9-12 Genitourinary: no CVA tenderness Musculoskeletal: gait/station normal Neurologic: alert, grossly normal Psychiatric: mood/affect normal Skin: normal color, no rash Medical Decision Making Diagnostic Impression: Primary Impression: Thrombosed external hemorrhoid ER Course Patient presents with rectal pain and swelling. The exam is diagnostic. Consideration for incision of hemorrhoid. Patient is against this and wants medication treatment and local care. Discussed the need for possible surgery in the future. Also advised to return if the problem is not resolving. Patient stable for outpatient observation and treatment. Last Vital Signs Date Time Temp Pulse Resp B/P (MAP) Pulse Ox O2 Delivery O2 Flow Rate FiO2 04/06/20 19:04 98.2 71 19 128/82 100 Room Air Status: improved Disposition: HOME, SELF-CARE Condition: Improved Scripts Hydrocortisone Hc 2.5% Cream (ANUSOL-HC 2.5% CREAM) Y Cr 1 APPLIC RC BID, #20 GM Prov: Carlos Milligan MD 04/06/20 Acetaminophen (Tylenol) 325 Mg Tablet 650 MG ORAL Q6H PRN for Prn Pain/Headache/Temp > 101, #20 TAB 0 Refills Prov: Carlos Milligan MD 04/06/20 Lactulose (LACTULOSE*) 20 Gm/30 Ml Solution 30 ML ORAL BID PRN for Constipation, #240 ML 1 Refill Prov: Carlos Milligan MD 04/06/20 Benzocaine (AMERICAINE) 28 Gm Oint...g. 1 APPLIC TP Q6HR, #30 GM 1 Refill Prov: Carlos Milligan MD 04/06/20 Hydrocortisone Acetate* (ANUSOL-HC*) 25 Mg Supp.rect 1 SUPP RECTAL TWICE A DAY, #14 SUPP Prov: Carlos Milligan MD 04/06/20 Carlos Milligan MD Apr 06, 2020 18:44
--- NOTE | 2020-04-06 19:04 | NUR ---
ER DISCHARGE NOTE: Patient is cleared to be discharged per ERMD, pt is aox4, on room air, with stable vital signs. pt was given dc and prescription instructions, pt was able to verbalize understanding, pt id band removed. pt is able to ambulate with steady gait. pt took all belongings.
== END | disposition home or self-care (01) ==
LOC: EMR 18:30
DX: K64.5 Perianal venous thrombosis (principal); F17.200 Nicotine dependence, unspecified, uncomplicated
CPT/HCPCS: 99282

== ENCOUNTER 2020-10-23 18:56 | Emergency (ER) | payer MEDICAID ==
[~2020-10-23] VITALS: Ht 154.9 cm; Wt 59.0 kg
[~2020-10-23 18:56] MED LIST changes: -Lidocaine HCl 2% Jelly 6ml Tube TOPIC ONE
--- NOTE | 2020-10-23 19:20 | NUR ---
ED Nurse Note: Recieved pt on chair, awake and oriented x 4, pt here wtih c/o upper and lower lip lesions for past 2 weeks, pt denies fevers, cough, sob, cp, or any other discomforts or complaitns, pt is ambulatory, will resume care as ordered.
--- NOTE | 2020-10-23 20:10 | Emergency Room Report ---
History of Present Illness General Chief Complaint: Skin Rash/Abscess Source: Patient Present Illness Allergies: Coded Allergies: No Known Allergies (Unverified , 03/09/17) COVID-19 Screening Contact w/high risk pt: No Experienced COVID-19 symptoms?: No COVID-19 Testing performed MASSEUR/MASSEUSE: No Patient History Now: No Nursing Documentation-[facility] Past Medical History: No History, Except For Physical Exam Vital Signs Date Time Temp Pulse Resp B/P (MAP) Pulse Ox O2 Delivery O2 Flow Rate FiO2 10/23/20 19:15 99.0 89 16 108/69 (82) 97 Room Air Medical Decision Making PA Attestation Dr. Chandler is my supervising Physician whom patient management has been discussed with. Diagnostic Impression: Primary Impression: Angular cheilitis Additional Impression: Stomatitis herpetiformis Labs Test 10/23/20 19:30 Urine HCG, Qualitative Negative (NEGATIVE) Last Vital Signs Date Time Temp Pulse Resp B/P (MAP) Pulse Ox O2 Delivery O2 Flow Rate FiO2 10/23/20 19:15 99.0 89 16 108/69 (82) 97 Room Air Disposition: HOME, SELF-CARE Condition: Stable Referrals: [facility],REFERR[facility] (PCP) Hunter Bernabe [employer] [facility] Patient Instructions: Medical Screening Exam Additional Instructions: Take medications as directed. Follow up with a Primary Care Provider in 3-5 days, even if your symptoms have resolved. --Please review list of primary care clinics, if you do not already have a primary care provider Return sooner to ED if new symptoms occur, or current symptoms become worse. - Please note that this Emergency Department Report was dictated using [employer] technology software, occasionally this can lead to erroneous entry secondary to interpretation by the dictation equipment. Kaitlin Basurto Oct 23, 2020 20:10
[2020-10-23] MEDS ORDERED: VALACYCLOVIR500 MG ORAL (20:12)
[2020-10-23] MEDS ORDERED: MULTIVITAMINS1 EAC8 ORAL (20:12)
[2020-10-23 20:20] VITALS: BP 108/69
--- NOTE | 2020-10-23 20:20 | NUR ---
ER DISCHARGE NOTE: Patient is cleared to be discharged per ERMD, pt is aox4, on room air, with stable vital signs. pt was given dc and prescription instructions, pt was able to verbalize understanding, pt id band removed without complications. pt is able to ambulate with steady gait. pt took all belongings.
== END 2020-10-23 20:20 | disposition home or self-care (01) ==
LOC: EMR 19:44
DX: K13.0 Diseases of lips (principal); B00.2 Herpesviral gingivostomatitis and pharyngotonsillitis
CPT/HCPCS: 81025; Z7502; 99283